=== PATIENT | female | born 1940 | race Hispanic/Latino ===

== ENCOUNTER 2024-10-24 02:05 | Emergency (ER) | payer MEDICARE, MEDICAID ==
[2024-10-24] MEDS ORDERED: GASTROGRAFIN 30 ML BOT ONE (13:35)
== END 2024-10-24 05:27 ==
LOC: ERS 02:05
DX: K94.20 Gastrostomy complication, unspecified (principal); E11.9 Type 2 diabetes mellitus without complications
CPT/HCPCS: 43762; 74018